=== PATIENT | female | born 2005 | race Caucasian/White ===

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

== ENCOUNTER 2024-04-04 14:18 | Emergency (ER) | payer BC ==
[2024-04-04 15:09] VITALS: RESP 18
--- NOTE | 2024-04-04 15:56 | ED ---
Abdominal Pain HPI - General Source: patient, family, RN notes reviewed Mode of arrival: ambulatory Limitations: no limitations - History of Present Illness MD Complaint: abdominal pain Onset/Timin -: days(s) Location: RLQ Severity scale (1-10): 10 <Feliz Schwarz - Last Filed: 04/04/24 15:54> <Sarabjit De Jesus - Last Filed: 04/05/24 19:16> - General Chief Complaint: Abdominal Pain Stated Complaint: Abd pain,Vomiting Time Seen by Provider: 04/04/24 14:35 - History of Present Illness Initial Comments: Quick note: This is a 18-year-old female presenting with mother for RLQ abdominal pain (01/15) since this morning. Patient endorses associated nausea/vomiting and inability to hold down food/liquid. Denies fever, chills, chest pain, dyspnea, dizziness, diarrhea, constipation, hematemesis, urinary symptoms. (Feliz Schwarz) 18-year-old female presenting with chief complaint of abdominal pain. Patient has been having right lower quadrant pain ongoing since earlier this morning. She is also having nausea and vomiting. No fever, chills, chest pain, difficulty breathing, dysuria, hematuria, vaginal bleeding or abnormal discharge , diarrhea. (Sarabjit De Jesus) - Related Data Previous Rx's Medication Instructions Recorded Ondansetron Odt [Zofran Odt] 4 mg PO Q8HR PRN #20 tab 04/05/24 Tamsulosin [Flomax] 0.4 mg PO DAILY #5 cap 04/05/24 Allergies Allergy/AdvReac Type Severity Reaction Status Date / Time amoxicillin Allergy Rash/Hives Verified 04/04/24 15:09 Review of Systems ROS Other: All systems not noted in ROS Statement are negative. <Feliz Schwarz - Last Filed: 04/04/24 15:54> ROS Other: All systems not noted in ROS Statement are negative. <Sarabjit De Jesus - Last Filed: 04/05/24 19:16> ROS Statement: Those systems with pertinent positive or pertinent negative responses have been documented in the HPI. Past Medical History Past Medical History: No Reported History History of Any Multi-Drug Resistant Organisms: None Reported Past Surgical History: No Surgical Hx Reported Past Psychological History: No Psychological Hx Reported Smoking Status: Never smoker Past Alcohol Use History: None Reported Past Drug Use History: None Reported <Feliz Schwarz - Last Filed: 04/04/24 15:54> General Exam Limitations: no limitations <Feliz Schwarz - Last Filed: 04/04/24 15:54> General appearance: alert, in no apparent distress Head exam: Present: atraumatic, normocephalic, normal inspection Eye exam: Present: normal appearance, EOMI Neck exam: Present: normal inspection. Absent: meningismus Respiratory exam: Present: normal lung sounds bilaterally. Absent: respiratory distress, wheezes, rales, rhonchi, stridor Cardiovascular Exam: Present: regular rate, normal rhythm, normal heart sounds. Absent: systolic murmur, diastolic murmur, rubs, gallop, clicks GI/Abdominal exam: Present: soft, tenderness. Absent: distended, guarding, rebound, rigid Neurological exam: Present: alert, oriented X3 Psychiatric exam: Present: normal affect, normal mood Skin exam: Present: warm, dry <Sarabjit De Jesus - Last Filed: 04/05/24 19:16> - General Exam Comments Initial Comments: Visual Physical Exam Vital signs reviewed General: Well-appearing, nontoxic. Patient clutching right lower abdomen Head: Normocephalic, atraumatic Eyes: PERRLA, EOMI ENT: Airway patent Chest: Nonlabored breathing Skin: No visual rash, normal skin tone Neuro: Alert and oriented 3 Musculoskeletal: No gross abnormalities (Feliz Schwarz) Course Vital Signs 04/04/24 04/05/24 04/05/24 15:06 00:31 02:08 Temperature 98.3 F 98.2 F 98.0 F Pulse Rate 98 85 87 Respiratory 18 18 18 Rate Blood Pressure 130/78 127/90 122/79 O2 Sat by Pulse 99 99 98 Oximetry Medical Decision Making <Feliz Schwarz - Last Filed: 04/04/24 15:54> - Lab Data Result diagrams: 04/04/24 16:25 04/04/24 16:25 <Sarabjit De Jesus - Last Filed: 04/05/24 19:16> - Medical Decision Making I completed the quick note portion of this chart signed JOSE Franco (Feliz Schwarz) Was pt. sent in by a medical professional or institution (BYRON De, METAL CNC OPERATOR, urgent care, hospital, or skilled nursing...) When possible be specific @ -No Did you speak to anyone other than the patient for history (EMS, parent, family, police, friend...)? What history was obtained from this source @ -No Did you review nursing and triage notes (agree or disagree)? Why? @ -I reviewed and agree with nursing and triage notes Were old charts reviewed (outside hosp., previous admission, EMS record, old EKG, old radiological studies, urgent care reports/EKG's, skilled nursing records)? Report findings @ -No old charts were reviewed Differential Diagnosis (chest pain, altered mental status, abdominal pain women, abdominal pain men, vaginal bleeding, weakness, fever, dyspnea, syncope, headache, dizziness, GI bleed, back pain, seizure, CVA, palpatations, mental health, musculoskeletal)? @ -MDM Differential Abdominal Pain Women: Appendicitis, Cholecystitis, diverticulosis, ischemic bowel, pancreatitis, hepatitis, UTI, gastroenteritis, AAA, incarcerated hernia, bowel obstruction, constipation, inflammatory bowel, hepatitis, peptic ulcer disease, splenic infarction, perforated viscus, vulvitis, ovarian torsion, PID, kidney stone, placenta abruption... This is not meant to be an all-inclusive list EKG interpreted by me (3pts min.). @ -As above X-rays interpreted by me (1pt min.). @ -None done CT interpreted by me (1pt min.). @ -CT shows mild right hydroureteronephrosis with an obstructing 2 mm calculus at the ureterovesicular junction. Appendix is within normal limits U/S interpreted by me (1pt. min.). @ -None done What testing was considered but not performed or refused? (CT, X-rays, U/S, labs)? Why? @ -None What meds were considered but not given or refused? Why? @ -None Did you discuss the management of the patient with other professionals (professionals i.e. BYRON De, METAL CNC OPERATOR, lab, RT, psych nurse, social and human services assistant, social media manager, teacher, medical laboratory technical officer, outsole caser)? Give summary @ -No Was smoking cessation discussed for >3mins.? @ -No Was critical care preformed (if so, how long)? @ -No Were there social determinants of health that impacted care today? How? (Homelessness, low income, unemployed, alcoholism, drug addiction, transportation, low edu. Level, literacy, decrease access to med. care, group home, rehab)? @ -No Was there de-escalation of care discussed even if they declined (Discuss DNR or withdrawal of care, Hospice)? DNR status @ -No What co-morbidities impacted this encounter? (DM, HTN, Smoking, COPD, CAD, Cancer, CVA, ARF, Chemo, Hep., AIDS, mental health diagnosis, sleep apnea, morbid obesity)? @ -None Was patient admitted / discharged? Hospital course, mention meds given and route, prescriptions, significant lab abnormalities, going to OR and other pertinent info. @ -18-year-old female presenting chief complaint of right lower quadrant pain as well as nausea and vomiting. Workup is initiated by triage. WBC 11.4, may be reactive secondary to vomiting. Potassium specimen mildly elevated and specimen is hemolyzed, falsely elevated. Mild transaminitis. Urine shows [address] is positive for 2 mm obstructing stone at the UVJ. Byron field's pain is well-controlled at this time and she is eager for discharge home. She is educated on today's findings and supportive management at home. Follow-up with PCP. Report back to ER with any new or worsening symptoms. Discussed return parameters and answered all questions. Patient conveyed verbal understanding and agreed to the plan. I discussed this case in detail with my attending Dr. Kiran Undiagnosed new problem with uncertain prognosis? @ -No Drug Therapy requiring intensive monitoring for toxicity (Heparin, Nitro, Insulin, Cardizem)? @ -No Were any procedures done? @ -No Diagnosis/symptom? @ -Kidney stone Acute, or Chronic, or Acute on Chronic? @ -Acute Uncomplicated (without systemic symptoms) or Complicated (systemic symptoms)? @ -Uncomplicated Side effects of treatment? @ -No Exacerbation, Progression, or Severe Exacerbation? @ -No Poses a threat to life or bodily function? How? (Chest pain, [place], [place], pneumonia, PE, COPD, DKA, ARF, appy, cholecystitis, CVA, Diverticulitis, Homicidal, Suicidal, threat to staff... and all critical care pts) @ -Low likelihood (Sarabjit De Jesus) - Lab Data Lab Results 12/04/04/24 04/04/24 Range/Units 16:25 16:25 23:58 WBC 11.4 H (4.0-11.0) k/uL RBC 4.57 (3.80-5.40) m/uL Hgb 13.1 (11.4-16.0) gm/dL Hct 40.4 (34.0-46.0) % MCV 88.3 (80.0-100.0) fL MCH 28.7 (25.0-35.0) pg MCHC 32.4 (31.0-37.0) g/dL RDW 12.2 (11.5-15.5) % Plt Count 289 (150-450) k/uL MPV 8.4 Neutrophils % 84 % Lymphocytes % 11 % Monocytes % 3 % Eosinophils % 0 % Basophils % 0 % Neutrophils # 9.6 H (1.3-7.7) k/uL Lymphocytes # 1.3 (1.0-4.8) k/uL Monocytes # 0.4 (0-1.0) k/uL Eosinophils # 0.0 (0-0.7) k/uL Basophils # 0.0 (0-0.2) k/uL Sodium 139 (137-145) mmol/L Potassium 5.3 H (3.5-5.1) mmol/L Chloride 106 (98-107) mmol/L Carbon Dioxide 18 L (22-30) mmol/L Anion Gap 15 mmol/L BUN 14 (7-17) mg/dL Creatinine 0.89 (0.52-1.04) mg/dL Est GFR (CKD-EPI)AfAm >90 (>60 ml/min/1.73 sqM) Est GFR (CKD-EPI)NonAf >90 (>60 ml/min/1.73 sqM) Glucose 114 H (74-99) mg/dL Calcium 9.8 (8.4-10.2) mg/dL Total Bilirubin 0.7 (0.2-1.3) mg/dL AST 53 H (14-36) U/L ALT 44 H (4-34) U/L Alkaline Phosphatase 104 (38-126) U/L Total Protein 8.2 (6.3-8.2) g/dL Albumin 5.0 (3.5-5.0) g/dL Urine Color Colorless Urine Appearance Clear (Clear) Urine pH 7.0 (5.0-8.0) Ur Specific [place] 1.050 H (1.001-1.035) Urine Protein Negative (Negative) Urine Glucose (UA) Negative (Negative) Urine Ketones Negative (Negative) Urine Blood Trace H (Negative) Urine Nitrite Negative (Negative) Urine Bilirubin Negative (Negative) Urine Urobilinogen <2.0 (<2.0) mg/dL Ur Leukocyte Esterase Negative (Negative) Urine RBC 23 H (0-5) /hpf Urine WBC 1 (0-5) /hpf Ur Squamous Epith Cells 1 (0-4) /hpf Urine Mucus Rare H (None) /hpf Urine HCG, Qual (Not Detectd) 04/04/24 Range/Units 23:58 WBC (4.0-11.0) k/uL RBC (3.80-5.40) m/uL Hgb (11.4-16.0) gm/dL Hct (34.0-46.0) % MCV (80.0-100.0) fL MCH (25.0-35.0) pg MCHC (31.0-37.0) g/dL RDW (11.5-15.5) % Plt Count (150-450) k/uL MPV Neutrophils % % Lymphocytes % % Monocytes % % Eosinophils % % Basophils % % Neutrophils # (1.3-7.7) k/uL Lymphocytes # (1.0-4.8) k/uL Monocytes # (0-1.0) k/uL Eosinophils # (0-0.7) k/uL Basophils # (0-0.2) k/uL Sodium (137-145) mmol/L Potassium (3.5-5.1) mmol/L Chloride (98-107) mmol/L Carbon Dioxide (22-30) mmol/L Anion Gap mmol/L BUN (7-17) mg/dL Creatinine (0.52-1.04) mg/dL Est GFR (CKD-EPI)AfAm (>60 ml/min/1.73 sqM) Est GFR (CKD-EPI)NonAf (>60 ml/min/1.73 sqM) Glucose (74-99) mg/dL Calcium (8.4-10.2) mg/dL Total Bilirubin (0.2-1.3) mg/dL AST (14-36) U/L ALT (4-34) U/L Alkaline Phosphatase (38-126) U/L Total Protein (6.3-8.2) g/dL Albumin (3.5-5.0) g/dL Urine Color Urine Appearance (Clear) Urine pH (5.0-8.0) Ur Specific [place] (1.001-1.035) Urine Protein (Negative) Urine Glucose (UA) (Negative) Urine Ketones (Negative) Urine Blood (Negative) Urine Nitrite (Negative) Urine Bilirubin (Negative) Urine Urobilinogen (<2.0) mg/dL Ur Leukocyte Esterase (Negative) Urine RBC (0-5) /hpf Urine WBC (0-5) /hpf Ur Squamous Epith Cells (0-4) /hpf Urine Mucus (None) /hpf Urine HCG, Qual Not Detected (Not Detectd) Disposition <Feliz Schwarz - Last Filed: 04/04/24 15:54> Is patient prescribed a controlled substance at d/c from ED?: No Time of Disposition: 01:18 <Sarabjit De Jesus - Last Filed: 04/05/24 19:16> Clinical Impression: Kidney stone Disposition: HOME SELF-CARE Condition: Good Instructions (If sedation given, give patient instructions): Kidney Stones (ED) Additional Instructions: Follow-up with your PCP. Report back to ER with any new or worsening symptoms. Take Motrin and Tylenol as needed for pain control. Do not take Tylenol 3 with [id number] Tylenol. Prescriptions: Tamsulosin [Flomax] 0.4 mg PO DAILY #5 cap Ondansetron Odt [Zofran Odt] 4 mg PO Q8HR PRN #20 tab PRN Reason: Nausea Referrals: Laura Dennison MD [Primary Care Provider] - 1-2 days
[2024-04-04 16:54] LABS: Basophils % (A) 0 %; Eosinophils % (A) 0 %; HCT 40.4 % (34.0-46.0); HGB 13.1 gm/dL (11.4-16.0); Lymphocytes # (A) 1.3 k/uL (1.0-4.8); Lymphocytes % (A) 11 %; MCH 28.7 pg (25.0-35.0); MCHC 32.4 g/dL (31.0-37.0); MCV 88.3 fL (80.0-100.0); Mean Platelet Volume 8.4; Monocytes # (A) 0.4 k/uL (0-1.0); Monocytes % (A) 3 %; Neutrophils # (A) 9.6 k/uL (1.3-7.7); Neutrophils % (A) 84 %; Platelet Count 289 k/uL (150-450); RBC 4.57 m/uL (3.80-5.40); RDW 12.2 % (11.5-15.5); WBC 11.4 k/uL (4.0-11.0)
[2024-04-04 17:34] LABS: ALT 44 U/L (4-34); African American GFR (CKD) >90 (>60 ml/min/1.73 sqM); Anion Gap 15 mmol/L; Blood Urea Nitrogen 14 mg/dL (7-17); Calcium 9.8 mg/dL (8.4-10.2); Carbon Dioxide 18 mmol/L (22-30); Chloride 106 mmol/L (98-107); Glucose 114 mg/dL (74-99); Non-African American GFR(CKD) >90 (>60 ml/min/1.73 sqM); Sodium 139 mmol/L (137-145); Total Bilirubin 0.7 mg/dL (0.2-1.3)
[2024-04-04 18:08] LABS: AST 53 U/L (14-36); Alkaline Phosphatase 104 U/L (38-126); Potassium 5.3 mmol/L (3.5-5.1); Total Protein 8.2 g/dL (6.3-8.2)
[2024-04-04] MEDS: ONDANSETRON 4 MG/2 ML VIAL IM STA (19:46)
[2024-04-04] MEDS: KETOROLAC 15 MG/ML 1 ML VIAL IM STA (19:48)
[2024-04-04] MEDS: ONDANSETRON 4 MG/2 ML VIAL IVP STA (21:47)
[2024-04-04] MEDS: KETOROLAC 15 MG/ML 1 ML VIAL IVP STA (21:47)
[2024-04-04] MEDS: SODIUM CHLORIDE 0.9% 1,000 ML IV STA (21:48)
--- NOTE | 2024-04-04 22:53 | CT ---
EXAMINATION TYPE: CT abdomen pelvis w con CT DLP: 1300.7 mGycm, Automated exposure control for dose reduction was used. DATE OF EXAM: 04/04/2024 10:16 PM COMPARISON: None CLINICAL INDICATION:Female, 18 years old with history of RLQ pain; Pt comes in today with c/o abdomin al pain since this morning. TECHNIQUE: Standard CT of the abdomen and pelvis following the administration of 100 cc of Isovue 3 00 IV contrast material. Coronal and sagittal reformats were performed. FINDINGS: LOWER CHEST: Unremarkable ABDOMEN LIVER: Diffusely hypoattenuating parenchyma. No focal lesion. GALLBLADDER AND BILE DUCTS: Unremarkable. PANCREAS: Unremarkable. SPLEEN: Unremarkable. ADRENAL GLANDS: Unremarkable. KIDNEYS AND URETERS: No renal calculi. No left hydronephrosis. Mild right hydroureteronephrosis with a punctate 2 mm calculus at the ureterovesical junction. Right perinephric fat stranding with delayed nephrographic phase. Contrast is only demonstrated in the left collecting system on the delayed phas e. PELVIS BLADDER: Unremarkable REPRODUCTIVE: Unremarkable. ABDOMEN & PELVIS STOMACH AND BOWEL: Stomach and duodenum are unremarkable. No focal bowel wall thickening or surroundi ng inflammatory changes. The appendix is within normal limits. No evidence of bowel obstruction. PERITONEUM: No evidence of pneumoperitoneum or free fluid. VASCULATURE: No evidence of aortic aneurysm. Pelvic phlebolith. MUSCULOSKELETAL: No acute osseous abnormalities. No spondylolisthesis. Bilateral L5 pars defects. LYMPH NODES: No evidence for lymphadenopathy. SOFT TISSUE/ABDOMINAL WALL: Unremarkable IMPRESSION: 1. Mild right hydroureteronephrosis with an obstructing 2 mm calculus at the ureterovesical junction . 2. Appendix is within normal limits. [facility], , 04/04/2024 10:46 PM
[2024-04-05] MEDS: MORPHINE SULFATE 2 MG/ML SYRINGE IVP STA (00:29)
[2024-04-05] MEDS: TAMSULOSIN 0.4 MG CAP.ER.24H PO STA (00:32)
[2024-04-05] MEDS: METOCLOPRAMIDE 5 MG/ML 2 ML VIAL IVP STA (00:33)
[2024-04-05] MEDS: Acetaminophen-Codeine 300-30mg TAB PO STA (00:53)
[2024-04-05 01:07] LABS: Appearance,Urine Clear (Clear); Bilirubin,Urine Negative (Negative); Blood,Urine Trace (Negative); Color,Urine Colorless; Glucose,Urine (UA) Negative (Negative); Ketones,Urine Negative (Negative); Leukocyte Esterase,Urine Negative (Negative); Mucus,Urine Rare /hpf; Nitrite,Urine Negative (Negative); Protein,Urine Negative (Negative); RBC,Urine 23 /hpf (0-5); Squamous Epithelial Cell,Urine 1 /hpf (0-4); Urobilinogen,Urine <2.0 mg/dL (<2.0); WBC,Urine 1 /hpf (0-5)
[2024-04-05] MEDS: ACET/COD 300 MG/30 MG STARTER PACK 6 TAB BTL PO STA (02:00)
[2024-04-05] MEDS: ONDANSETRON 4 MG ODT STARTER PACK 2 TAB BTL PO STA (02:01)
[2024-04-05 02:09] VITALS: BP 122/79; PULSE 87; TEMP 98
== END 2024-04-05 02:09 | disposition home or self-care (01) ==
LOC: EC 14:18
DX: N13.2 Hydronephrosis with renal and ureteral calculous obstruction (principal); Z88.0 Allergy status to penicillin
CPT/HCPCS: 36415; 80053; 85025; 81001; 81025; 74177; 99284; 96372; 96361; 96374; 96375; J2765; J2405; J2270; J1885; S0119; Q9967